=== PATIENT | male | born 1935 | race Caucasian/White ===

== ENCOUNTER 2016-11-04 10:51 | Inpatient (IN) | payer MEDICARE, BC ==
[~2016-11-04 10:51] MED LIST: LIDOCAINE 1% 20 ML VIAL (10MG/ML) FOR IV START INTRADERMA PRN
[2016-11-04] MEDS: LACTATED RINGERS 1,000 ML IV SCH (12:36)
[2016-11-04 13:06] LABS: ALT 36 U/L (21-72); AST 26 U/L (17-59); Alkaline Phosphatase 43 U/L (38-126); Anion Gap 14 mmol/L; Blood Urea Nitrogen 27 mg/dL (9-20); Calcium 9.4 mg/dL (8.4-10.2); Carbon Dioxide 23 mmol/L (22-30); Chloride 105 mmol/L (98-107); Glucose 98 mg/dL (74-99); Non-African American GFR(MDRD) >60 (>60 ml/min/1.73 sqM); Sodium 142 mmol/L (137-145); Total Bilirubin 1.4 mg/dL (0.2-1.3); Total Protein 6.9 g/dL (6.3-8.2)
--- NOTE | 2016-11-04 13:32 | XR ---
EXAMINATION TYPE: XR chest 2V DATE OF EXAM: 11/04/2016 1:22 PM COMPARISON: 08/22/2016 INDICATION: Chest pain TECHNIQUE: Frontal and lateral views of the chest are obtained. FINDINGS: The heart size is normal. The pulmonary vasculature is normal. No suspicious infiltrates are evident. Sternotomy wires are present previous CABG. IMPRESSION: 1. No acute pulmonary process.
[2016-11-04 13:34] LABS: Creatine Kinase MB 0.8 ng/mL (0.0-2.4); Troponin I 0.018 ng/mL (0.000-0.034)
[2016-11-04 14:10] LABS: INR 1.3 (<1.1); Prothrombin Time 12.4 sec (9.0-12.0)
[2016-11-04] MEDS ORDERED: NITROGLYCERIN SL TABS 0.4 MG TAB SUBLINGUAL PRN (15:11)
[2016-11-04] MEDS: SODIUM CHLORIDE 0.9% 1,000 ML IV SCH (16:01)
[2016-11-04] MEDS ORDERED: ALPRAZolam 0.5 MG TAB PO PRN (16:53)
--- NOTE | 2016-11-04 17:16 | CONS ---
DATE OF CONSULTATION: 11/01/2016 REASON FOR CONSULTATION: Hemoptysis to evaluate for bronchoscopy. HISTORY OF PRESENTING ILLNESS: Mr. Ellis Feng is a pleasant 81-year-old male who was seen, evaluated, examined for ongoing problems associated with intermittent streaks to clumps of blood going on for 2 to 3 months. Symptoms started somewhere around July or August. Patient has received multiple courses of antibiotics, has had multiple chest x-rays which have been reviewed as well. Patient has been complaining of poor appetite and weight loss. He has lost close to about 20 pounds as well. Lately, however, he has gained a few pounds back. He does complain of generalized weakness; however, he denies any night sweats, fever or chills. His past medical history is significant for: 1. Dyslipidemia. 2. Degenerative joint disease and osteoarthritis. 3. Hypertension, hypertensive cardiovascular disease. 4. History of coronary artery disease and prior OR. 5. Generalized anxiety disorder. PAST SURGICAL HISTORY: 1. CABG x2 followed by, I believe, redo. 2. Hernia repair. 3. Status post cholecystectomy. 4. History of prostate resection via laser. , FAMILY HISTORY AND SOCIAL HISTORY: He used to smoke 1 pack per day; smoked close to about 40 years. He quit smoking around that time. No history of substance use or alcohol consumption. 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 ALLERGIES: NO KNOWN DRUG ALLERGY. Medications at home include: 1. Vitamin D once daily. 2. Aspirin 81 mg 2 times a day. 3. Metoprolol 25 mg 2 times a day. 4. Liothyronine 5 mcg 2 times a day. 5. Levothyroxine 100 mcg daily. 6. Imdur 60 mg daily. 7. Fenofibrate once daily. 8. Atorvastatin 10 mg daily. Review of the data and radiographic studies reviewed as well. CT scan of the chest on 08/21/16 was negative for pulmonary embolism. Left lower lobe pneumonia is seen. This was performed at [facility]. Chest x-ray on 08/21/16 revealed left lower lobe atelectasis. Chest x-ray on 07/06/16 revealed interstitial prominence, small pleural effusion with a history of prior CABG. October 15 x-ray revealed persistent left lower lobe infiltrate, atelectasis along with left lower lobe volume loss and very small left-sided pleural effusion. On examination, blood pressure is 131/70, respiratory rate 16, pulse of 61. Temperature is 97. Weight is 150 pounds. Height is 69 inches. Saturation 96%. HEENT: Atraumatic, normocephalic. Pharynx is clear without exudate. NECK: Supple without lymphadenopathy, jugular venous distention or carotid bruit. LUNGS: Bilateral good air entry is present; however, decreased air entry and bronchial breath sounds in the left base. HEART: Regular rate, rhythm. S1, S2 audible. ABDOMEN: Soft. No rebound or rigidity. EXTREMITIES: Plus 1 peripheral pulses. NEUROLOGICAL EXAMINATION: Awake and alert. No focal neurological deficit. X-ray finding as dictated above. CT scan finding as dictated above. IMPRESSION: 1. Persistent left lower lobe pneumonia. 2. Hemoptysis. 3. Neoplastic process cannot be excluded. 4. History of coronary artery disease, status post coronary artery bypass graft. 5. History of myocardial infarction. 6. Hypertension, hypertensive cardiovascular disease. 7. Dyslipidemia. PLAN AND RECOMMENDATIONS: I have discussed with the patient as well as his daughter accompanying him at length. Patient is being scheduled for bronchoscopy and possible lung biopsy. Depending upon the finding, further intervention will be addressed. Patient is being set up for pulmonary function testing as well. Further recommendations pending. Plan of care as per clinical response of the patient.
--- NOTE | 2016-11-04 17:27 | P.CRDCN ---
History of Present Illness Consult date: 11/04/16 History of present illness: This is a 81-year-old gentleman with history of ischemic heart disease and previous bypass surgery 2, hypertension and hyperlipidemia and hypothyroidism who was admitted in August of this year to the hospital with the cough and chest pains. At the time he was diagnosed to have pneumonia and was treated with antibiotics. His stress echocardiogram was reported as normal at the time. Patient was brought in today for bronchoscopy by Dr. Quintanilla. Apparently patient has been complaining of intermittent chest pains and has been taking nitroglycerin as needed. Patient claims the pain feels different than the anginal pains. He claims he gets inconsistent relief with nitroglycerin. The pain is not associated with any nausea vomiting or radiation to the jaw or the arm. His EKGs did not reveal any acute changes. These pains are chronic without any acute change in the pattern and stress test was done while patient was having these pains. He is a troponin value so far is within normal limits. Based on those facts, I do not think that patient has any acute anginal syndrome and I do not believe that these pains are definitely cardiac in nature. I would recommend to proceed with bronchoscopy without any further evaluation. He is a Lexiscan stress test in 2013 showed evidence of mild to moderate fixed defect in inferior wall probably secondary previous subendocardial SC without any reversible ischemia. Review of Systems As per the chart Past Medical History Past Medical History: Coronary Artery Disease (CAD), GERD/Reflux, Hyperlipidemia , Hypertension, Myocardial Infarction (SC), Thyroid Disorder Additional Past Medical History / Comment(s): collapsed lung-STATED NO C/T, CONSTIPATION. RECENT EPISODE OF COUGHING UP BLOOD Last Myocardial Infarction Date:: 1991 History of Any Multi-Drug Resistant Organisms: None Reported Past Surgical History: Coronary Bypass/CABG, Hernia Repair Additional Past Surgical History / Comment(s): cataracts tracey, pt stated had 2 separate open heart sx. first one had a double bypass and second sx was single vessel. Past Anesthesia/Blood Transfusion Reactions: No Reported Reaction Past Psychological History: No Psychological Hx Reported Smoking Status: Former smoker Past Alcohol Use History: None Reported Additional Past Alcohol Use History / Comment(s): started smoking at age 15, smoked 1 ppd, quit 1991, denies any etoh use now Past Drug Use History: None Reported - Past Family History Father Additional Family Medical History / Comment(s): multiple back sx. pt unsure of other hx Mother Family Medical History: No Reported History Additional Family Medical History / Comment(s): young, in her 40's Medications and Allergies Home Medications Medication Instructions Recorded Confirmed Type Aspirin EC [Ecotrin Low Dose] 81 mg PO BID 08/15/14 11/04/16 History Atorvastatin [Lipitor] 10 mg PO HS 08/15/14 11/01/16 History Metoprolol Tartrate [Lopressor] 25 mg PO BID 08/15/14 11/01/16 History Cholecalciferol [Vitamin D3] 1,000 unit PO DAILY 09/15/15 11/01/16 History Fenofibrate Nanocrystallized 145 mg PO DAILY 07/07/16 11/01/16 History [Fenofibrate] Levothyroxine Sodium 100 mcg PO DAILY 07/07/16 11/01/16 History Liothyronine Sodium [Cytomel] 10 mcg PO DAILY 08/21/16 11/01/16 History Allergies Allergy/AdvReac Type Severity Reaction Status Date / Time No Known Allergies Allergy Verified 11/01/16 13:57 Physical Exam Vitals: Vital Signs Temp Pulse Resp BP Pulse Ox 11/04/16 16:47 106 H 18 177/78 95 11/04/16 14:00 85 16 151/70 95 11/04/16 11:21 98.1 F 88 16 163/78 98 GENERAL EXAM: Patient is alert and oriented and doesn't appear to be in any acute distress HEENT: Normocephalic. Normal reaction of pupils, equal size, normal range of extraocular motion. No erythema or exudates in the throat. NECK: No masses, no nuchal rigidity. CHEST: No chest wall deformity. LUNGS: Equal air entry with no crackles or wheeze. HEART: S1 and S2 normal with no audible mumurs or gallops. Regular rhythm, femorals equal on both sides.. ABDOMEN: No hepatosplenomegaly, normal bowel sounds, no guarding or rigidity. SKIN: No rashes CENTRAL NERVOUS SYSTEM: No focal deficits. EXTREMITIES: No cyanosis, clubbing or edema. Results 11/04/16 12:30 Cardiac Enzymes 11/04/16 11/04/16 Range/Units 12:30 12:30 AST 26 (17-59) U/L CK-MB (CK-2) 0.8 (0.0-2.4) ng/mL Troponin I 0.018 (0.000-0.034) ng/mL Coagulation 11/04/16 Range/Units 13:45 PT 12.4 H (9.0-12.0) sec Comprehensive Metabolic Panel 11/04/16 Range/Units 12:30 Sodium 142 (137-145) mmol/L Potassium 4.0 (3.5-5.1) mmol/L Chloride 105 (98-107) mmol/L Carbon Dioxide 23 (22-30) mmol/L BUN 27 H (9-20) mg/dL Creatinine 1.10 (0.66-1.25) mg/dL Glucose 98 (74-99) mg/dL Calcium 9.4 (8.4-10.2) mg/dL AST 26 (17-59) U/L ALT 36 (21-72) U/L Alkaline Phosphatase 43 (38-126) U/L Total Protein 6.9 (6.3-8.2) g/dL Albumin 3.6 (3.5-5.0) g/dL Current Medications Generic Name Dose Route Start Last Admin Trade Name Freq PRN Reason Stop Dose Admin Alprazolam 0.5 mg 11/04/16 16:53 Xanax PO TID PRN Agitation or Acute Anxiety Atorvastatin Calcium 10 mg 11/04/16 21:00 Lipitor PO HS LEOBARDO Cholecalciferol 1,000 unit 11/05/16 09:00 Vitamin D3 PO DAILY LEOBARDO Lactated Ringer's 1,000 mls @ 20 mls/hr 11/04/16 06:36 11/04/16 12:36 Lactated Ringers IV 0 mls .Q24H LEOBARDO Administration Ceftriaxone Sodium 1,000 mg/ 50 mls @ 100 mls/hr 11/04/16 13:00 Sodium Chloride IVPB Q24HR LEOBARDO Sodium Chloride 1,000 mls @ 20 mls/hr 11/04/16 15:15 11/04/16 16:01 Saline 0.9% IV 0 mls .Q24H LEOBARDO Administration Isosorbide Mononitrate 60 mg 11/05/16 09:00 Imdur PO QAM LEOBARDO Levothyroxine Sodium 100 mcg 11/05/16 09:00 Synthroid PO DAILY LEOBARDO Lidocaine HCl 0.1 ml 11/04/16 06:36 11/04/16 12:36 .Xylocaine 1% Inj (10mg/Ml) For Iv Start INTRADERMA 0.1 ml PER PROTOCOL PRN Administration IV Start Liothyronine Sodium 10 mcg 11/05/16 09:00 Cytomel PO DAILY LEOBARDO Metoprolol Tartrate 25 mg 11/04/16 21:00 Lopressor PO BID LEOBARDO Nitroglycerin 0.4 mg 11/04/16 15:11 Nitrostat SUBLINGUAL Q5M PRN Chest Pain Non-Formulary Medication 81 mg 11/04/16 21:00 Aspirin Ec PO BID LEOBARDO Non-Formulary Medication 145 mg 11/05/16 09:00 Fenofibrate Nanocrystallized [Fenofibrate] PO DAILY LEOBARDO 11/04/16 12:30 EKG Interpretations (text) Sinus rhythm with evidence of old inferior wall SC Assessment and Plan (1) Atypical chest pain Status: Acute (2) Hx of CABG Status: Acute (3) Hyperlipemia Status: Acute (4) Hypothyroid Status: Acute Plan: Patient chest pain appeared to be typical. Recent is stress echo cardiogram is negative for ischemia. Patient's chest pains have been chronic without any acute change. I would recommend proceeding with bronchoscopy , if necessary, without any further cardiac evaluation.
--- NOTE | 2016-11-04 18:12 | HP ---
DATE OF ADMISSION: 11/04/2016 CHIEF COMPLAINT: Chest pain. HISTORY OF PRESENT ILLNESS: Mr. Ellis Feng is an 81-year-old male who was originally admitted to the hospital with problems associated with hemoptysis and chronic left lung pneumonia versus atelectasis. He has been having intermittent chest pain, has been taking nitroglycerin tablets as well. With those problems, patient is being admitted to the hospital with Cardiology on consultation. EKG was performed which is normal. I have ordered the labs. Procedure of bronchoscopy is being canceled at this point in time. PAST MEDICAL HISTORY: 1. Hypertension, hypertensive cardiovascular disease. 2. Dyslipidemia. 3. Coronary artery disease. 4. History of prior myocardial infarction. 5. History of recurrent pneumonia involving the left side. ALLERGIES: NO KNOWN DRUG ALLERGY. Medications at home include: 1. Nitrostat 0.4 as needed, which he has been taking since yesterday off and on. 2. Aspirin 81 mg daily. 3. Metoprolol 25 mg 2 times a day. 4. Liothyronine 10 mcg daily. 5. Levothyroxine 100 mcg daily. 6. Imdur 60 mg daily. 7. Fenofibrate 145 mg daily. 8. Vitamin D3 once daily. 9. Atorvastatin 10 mg daily. Past surgical history is significant for coronary artery bypass surgery with a redo surgery in the past. FAMILY HISTORY AND SOCIAL HISTORY: He used to smoke; about 40 years, about 1-1/2 packs per day; quit back in the '. REVIEW OF SYSTEMS: Otherwise unremarkable and noncontributory except as dictated above. MANAGER PSYCHOLOGY: Denies seizure-like activity or loss of consciousness or hemiparesis. CARDIORESPIRATORY: Significant for intermittent hemoptysis and left-sided chest pain. GI/: Otherwise unremarkable and noncontributory. MUSCULOSKELETAL/DERMATOLOGICAL: Unremarkable and noncontributory except as dictated above. On examination, most recent vitals include blood pressure 163/70, respiratory rate 16, pulse 88, temperature 98. Saturating at 98%. HEENT: Atraumatic, normocephalic. Pharynx is clear without exudate. NECK: Supple without any lymphadenopathy, jugular venous distention or carotid bruit. LUNGS: Bilateral good air entry is present without significant rales, rhonchi or rub. HEART: Regular rate, rhythm. S1, S2 audible. ABDOMEN: Soft. No rebound or rigidity. EXTREMITIES: Plus one peripheral pulses. NEUROLOGICAL EXAMINATION: Otherwise awake and alert. IMPRESSION: 1. Left-sided chest pain with a significant history of coronary artery disease and angina. Patient is being admitted to hospital with Cardiology on consultation. Cardiac enzymes, including troponin. Troponin has been ordered. 2. Hemoptysis, likely related to left lower lobe atelectasis and pneumonia; however, endobronchial mass or lesion cannot be excluded. Patient was cleared by Cardiology. Will proceed with bronchoscopy. 3. Hemoptysis as above. Patient will be started on broad-spectrum antibiotics as well for hemoptysis and pneumonia. Obtain a chest x-ray. Once, as dictated above, cleared from cardiovascular standpoint, will proceed with bronchoscopy. 4. Myocardial infarction. 5. Coronary artery disease. 6. Dyslipidemia. 7. Hypertension, hypertensive cardiovascular disease. PLAN AND RECOMMENDATIONS: As above.
[2016-11-04] MEDS: ASPIRIN 81 MG CHEW PO SCH (20:23)
[2016-11-04] MEDS: ATORVASTATIN 10 MG TAB PO SCH (20:23)
[2016-11-04] MEDS: METOPROLOL TARTRATE 25 MG TAB PO SCH (20:24)
[2016-11-05] MEDS ORDERED: HEPARIN SODIUM,PORCINE 5,000 UNIT/ML 1 ML VIAL IV PRN (08:32)
[2016-11-05] MEDS ORDERED: HEPARIN SODIUM,PORCINE 5,000 UNIT/ML 1 ML VIAL IV ONE (08:32)
[2016-11-05] MEDS: SODIUM CHLORIDE 0.9% 1,000 ML IV SCH (09:16)
[2016-11-05] MEDS: LEVOTHYROXINE 100 MCG TAB PO SCH (09:16)
[2016-11-05] MEDS: LACTATED RINGERS 1,000 ML IV SCH (09:16)
[2016-11-05] MEDS: LIOTHYRONINE SODIUM 5 MCG TAB PO SCH (09:16)
[2016-11-05] MEDS: HEPARIN SODIUM,PORCINE/D5W PMX 25,000 UNIT in DEXTROSE/WATER 1 500ML.BAG IV SCH (09:17)
--- NOTE | 2016-11-05 09:32 | ECHOF ---
Referral Reason:Chest pain and cardiomyopathy MEASUREMENTS -------- HEIGHT: 175.3 cm WEIGHT: 63.5 kg BP: 134/67 RVIDd: 3.1 cm (< 3.3) IVSd: 1.1 cm (0.6 - 1.1) LVIDd: 4.8 cm (3.9 - 5.3) LVPWd: 1.2 cm (0.6 - 1.1) IVSs: 1.9 cm LVIDs: 3.1 cm LVPWs: 2.1 cm LA Diam: 4.0 cm (2.7 - 3.8) LAESV Index (A-L): 27.37 ml/m Ao Diam: 3.5 cm (2.0 - 3.7) AV Cusp: 2.1 cm (1.5 - 2.6) MV EXCURSION: 11.106 mm (> 18.000) MV EF SLOPE: 37 mm/s (70 - 150) EPSS: 0.3 cm MV E Armand: 0.72 m/s MV DecT: 246 ms MV A Armand: 0.92 m/s MV E/A Ratio: 0.78 RAP: 5.00 mmHg RVSP: 34.97 mmHg FINDINGS -------- Sinus rhythm. This was a technically good study. The left ventricular size is normal. There is borderline concentric left ventricular hypertrophy. Overall left ventricular systolic function is normal with, an EF between 60 - 65 %. The right ventricle is normal in size and function. The left atrium is normal in size. Normal LA size by volume 22+/-6 ml/m2. The right atrium is normal in size. The aortic valve is trileaflet and appears structurally normal. There is trace mitral regurgitation. Trace tricuspid regurgitation present. There is mild pulmonary hypertension. The right ventricular systolic pressure, as measured by Doppler, is 34.97mmHg. Trace/mild (physiologic) pulmonic regurgitation. The aortic root size is normal. IVC Not well visulized. There is no pericardial effusion. CONCLUSIONS -------- 1. Sinus rhythm. 2. Trace tricuspid regurgitation present. 3. There is mild pulmonary hypertension. 4. The right ventricular systolic pressure, as measured by Doppler, is 34.97mmHg. 5. Trace/mild (physiologic) pulmonic regurgitation. 6. The aortic root size is normal. 7. IVC Not well visulized. 8. There is no pericardial effusion. 9. This was a technically good study. 10. There is borderline concentric left ventricular hypertrophy. 11. Overall left ventricular systolic function is normal with, an EF between 60 - 65 %. 12. The right ventricle is normal in size and function. 13. The left atrium is normal in size. 14. The right atrium is normal in size. 15. The aortic valve is trileaflet and appears structurally normal. 16. There is trace mitral regurgitation. SAILOR: Myranda Gotti RDCS
[2016-11-05] MEDS: ASPIRIN 81 MG CHEW PO SCH ×2 (09:34→20:30)
[2016-11-05] MEDS: ISOSORBIDE MONONITRATE ER 60 MG TAB.ER.24H PO SCH (09:34)
[2016-11-05] MEDS: CHOLECALCIFEROL 1,000 UNIT TAB PO SCH (09:34)
[2016-11-05] MEDS: FENOFIBRATE 160 MG TAB PO SCH (09:34)
[2016-11-05] MEDS: METOPROLOL TARTRATE 25 MG TAB PO SCH (09:34)
--- NOTE | 2016-11-05 10:08 | P.PN ---
Subjective Principal diagnosis: Non-ST elevation [place] This 81-year-old gentleman with history of ischemic heart disease with a previous bypass surgery 2. The last bypass surgery was done in 1997 with a single bypass surgery to the circumflex. Patient had a patent FLOYD to the LAD and vein graft to circumflex and patient was brought in yesterday to have bronchoscopy. He was having recurrent chest pains with inconsistent relief with nitroglycerin. EKGs did not reveal any acute changes. Recent a stress echocardiogram in August was negative for ischemia. However his troponin values showed changes consistent with acute non-ST elevation myocardial infarctions. Patient is still coughing and has hemoptysis. I spoke with Dr. Quintanilla regarding possible catheterization and stent placement and need for dual antiplatelet agent. Dr. Quintanilla is going to do a repeat CAT scan to see if there is any findings of necrotizing mass. If the CAT scan is negative, will proceed with cardiac catheterization within next 24-48 hours with intention of possible intervention. Meanwhile we will try maximum medical therapy. Objective - Vital Signs Vital signs: Vital Signs Temp 97.8 F 11/05/16 05:47 Pulse 71 11/05/16 05:47 Resp 17 11/05/16 05:47 BP 150/72 11/05/16 05:47 Pulse Ox 97 11/05/16 05:47 Intake & Output 11/04/16 11/05/16 11/05/16 18:59 06:59 18:59 Intake Total 20 Output Total 200 450 300 Balance -200 -430 -300 Weight 63.6 kg Intake: Intake, IV Titration 20 Amount Sodium Chloride 0.9% 1, 20 000 ml @ 20 mls/hr IV . Q24H [facility] Rx#:[id number] Output: Urine 200 450 300 Other: Voiding Method Urinal Diaper # Voids 1 - Exam GENERAL EXAM: Patient is alert and oriented and doesn't appear to be in any acute distress HEENT: Normocephalic. Normal reaction of pupils, equal size, normal range of extraocular motion. No erythema or exudates in the throat. NECK: No masses, no nuchal rigidity. CHEST: No chest wall deformity. LUNGS: Equal air entry with no crackles or wheeze. HEART: S1 and S2 normal with no audible mumurs or gallops. Regular rhythm, femorals equal on both sides.. ABDOMEN: No hepatosplenomegaly, normal bowel sounds, no guarding or rigidity. SKIN: No rashes CENTRAL NERVOUS SYSTEM: No focal deficits. EXTREMITIES: No cyanosis, clubbing or edema. - Labs CBC & Chem 7: 11/04/16 12:30 Labs: Abnormal Lab Results - Last 24 Hours (Table) 11/04/16 11/04/16 11/04/16 Range/Units 12:30 13:45 19:38 PT 12.4 H (9.0-12.0) sec BUN 27 H (9-20) mg/dL Total Bilirubin 1.4 H (0.2-1.3) mg/dL Troponin I 0.283 H* (0.000-0.034) ng/mL 11/04/16 Range/Units 23:44 PT (9.0-12.0) sec BUN (9-20) mg/dL Total Bilirubin (0.2-1.3) mg/dL Troponin I 0.504 H* (0.000-0.034) ng/mL Assessment and Plan (1) Atypical chest pain Status: Acute (2) Hx of CABG Status: Acute (3) Hyperlipemia Status: Acute (4) Hypothyroid Status: Acute (5) Non-ST elevation [place] (NSTEMI) Status: Acute Plan: Continue with IV heparin. Will increase the dose of the beta betr. We will continue with aspirin and nitrates. Dr. Quintanilla is going to do a repeat CAT scan to reassess the necrotizing mass seen on previous CAT scan. If the symptoms are not controlled and if there is no significant mass on the CAT scan, we will proceed with cardiac catheterization within next 24-48 hours.
[2016-11-05 10:12] LABS: Basophils % (A) 0 %; CH 30.6; CHCM 33.1; Eosinophils # (A) 0.2 k/uL (0-0.7); Eosinophils % (A) 2 %; HDW 2.45; HGB 12.8 gm/dL (13.0-17.5); Luc # (Auto) 0.13; Luc % (Auto) 2; Lymphocytes # (A) 1.3 k/uL (1.0-4.8); Lymphocytes % (A) 16 %; MCH 29.6 pg (25.0-35.0); MCHC 31.9 g/dL (31.0-37.0); MCV 92.8 fL (80.0-100.0); Mean Platelet Volume 9.6; Monocytes # (A) 0.7 k/uL (0-1.0); Monocytes % (A) 9 %; Neutrophils # (A) 5.8 k/uL (1.3-7.7); Neutrophils % (A) 72 %; RBC 4.31 m/uL (4.30-5.90); RDW 13.7 % (11.5-15.5); WBC (Perox) 8.36
[2016-11-05] MEDS ORDERED: METOPROLOL TARTRATE 25 MG TAB PO ONE (10:15)
[2016-11-05 10:24] LABS: INR 1.5 (<1.1); Partial Thromboplastin Time 85.4 sec (22.0-30.0); Prothrombin Time 14.3 sec (9.0-12.0)
--- NOTE | 2016-11-05 12:10 | PN ---
An 81-year-old male seen, evaluated, and examined on the extended stay unit. Patient was admitted to hospital with hemoptysis and was being planned for bronchoscopy but; however, because of chest pain and utilization of nitro, procedure was postponed and consultation with Cardiology was obtained. They evaluated, initially they have cleared the patient but; however, cardiac enzymes show a trend with a rising troponin. Patient currently being evaluated with an echocardiogram. Cardiovascular Service is following and they are in process of evaluating this patient further and likely will undergo cardiac cath and angiogram. Patient hemodynamic status is stable. Last set of vitals include blood pressure is 150/70, respirations 17, pulse 71, temperature 98, saturation 97%. HEENT: Unremarkable. NECK: Supple. LUNGS: Good air entry bilaterally without significant rales, rhonchi, or rub. Decreased air entry at base is present with some crackles at the right base. HEART: Regular rate and rhythm, S1 and S2 audible. ABDOMEN: Soft. No rebound or rigidity. EXTREMITIES: +1 peripheral pulses. NEUROLOGICAL EXAMINATION: Otherwise, awake and alert. Labs reviewed. Medications reviewed. Currently patient on Xanax 3 times a day, aspirin 81 mg daily, Lipitor 10 mg, Rocephin 1 gm daily, also on Lofibra 160 mg daily, heparin drip is being started as per protocol, Imdur 60 mg p.o. daily and KVO. Synthroid is 100 mcg daily. Also on Cytomel 10 mcg, Lopressor and Nitrostat and IV fluid KVO. REVIEW OF SYSTEMS: Otherwise unremarkable and noncontributory on HEENT exam. Labs are reviewed. White cell count revealed PT, INR within normal limit. Chemistry done yesterday revealed troponin initially was 0.018, then 0.283 and 0.504. EKG sinus rhythm. IMPRESSION: 1. [id number] elevated myocardial infarction. 2. Left lower lobe pneumonia versus mass; however, this chest x-ray which was performed in the hospital, shows left lower lobe atelectasis subsegment level. PLAN: As dictated above. Will treat patient for pneumonia and hemoptysis. Continue broad-spectrum antibiotics. For the evaluation for acute [id number] elevated [place] as per Cardiovascular Services. Will follow clinical course closely.
--- NOTE | 2016-11-05 12:17 | CT ---
EXAMINATION TYPE: CT chest wo con DATE OF EXAM: 11/05/2016 10:52 AM COMPARISON: 08/21/2016 HISTORY: 81-year-old male LLL abscess. Necrotizing pneumonia TECHNIQUE: Contiguous axial scanning of the chest without IV contrast. Coronal and sagittal reconstru ctions performed. CT DLP: 473.00 mGycm Automated exposure control for dose reduction was used. FINDINGS: Median sternotomy wires are present with post-CABG changes. Heart is normal size without pericardial effusion. Ascending aorta is borderline ectatic at 3.6 cm with moderate prostatic calcifications and convention al arch vessel branching anatomy. 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 Mild diffuse bronchial wall thickening is noted. There is volume loss within the left lower lobe with persistent consolidation and edema involving the basilar segments with associated cyst/cavity format ion measuring up to 3.7 cm. Overall appearance is unchanged with adjacent groundglass. Focal patchy peribronchial vascular groundglass is a more confluent appearance in the superior segmen t right lower lobe, axial image 20. A 4 mm left upper lobe pulmonary nodule axial image 16 appears unchanged. Small hiatal hernia. Visualized upper abdomen shows cholelithiasis and a large 4.9 cm left upper pole cyst. The upper abdo esther aorta is borderline aneurysmal at 3.0 cm. Some subcentimeter nodularity upper pole right kidney is to small for CT characterization. Bones: Endplate spondylosis throughout the thoracic spine. No osseous destructive process. IMPRESSION: 1. OVERALL APPEARANCE OF THE LEFT LOWER LOBE VOLUME LOSS, CONSOLIDATION, AND CYST/CAVITY FORMATION IS SIMILAR TO 08/21/2016. Pneumonia with areas of cavitary necrosis and pneumatocele formation is suspec chloe. Continued follow-up is recommended. If the finding fails to clear or there are no infectious sig ns/symptoms, consideration should be given to excluding an underlying mass. 2. Patchy peribronchovascular groundglass in the superior segment right lower lobe appears slightly m ore confluent. A second site of infectious infiltrate is possible. Other differential considerations include an interstitial pneumonitis such as [employer] and adenomatous hyperplasia which can be a precursor to lung cancer. Again, this should be followed to ensure clearance. 3. 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 4. Small hiatal hernia, cholelithiasis, and left renal cyst. Subcentimeter lesions in the upper pole right kidney are too small for accurate CT characterization.
[2016-11-05] MEDS: METOPROLOL TARTRATE 50 MG TAB PO SCH (20:31)
[2016-11-05] MEDS: ATORVASTATIN 10 MG TAB PO SCH (21:03)
[2016-11-06] MEDS: ISOSORBIDE MONONITRATE ER 60 MG TAB.ER.24H PO SCH (06:24)
[2016-11-06] MEDS: METOPROLOL TARTRATE 50 MG TAB PO SCH ×2 (06:24→20:44)
[2016-11-06] MEDS: LEVOTHYROXINE 100 MCG TAB PO SCH (06:24)
[2016-11-06] MEDS: ASPIRIN 81 MG CHEW PO SCH ×2 (06:25→20:47)
[2016-11-06] MEDS: LIOTHYRONINE SODIUM 5 MCG TAB PO SCH (06:25)
[2016-11-06] MEDS: CHOLECALCIFEROL 1,000 UNIT TAB PO SCH (06:25)
[2016-11-06] MEDS: FENOFIBRATE 160 MG TAB PO SCH (06:26)
[2016-11-06 06:35] LABS: ALT 31 U/L (21-72); AST 28 U/L (17-59); Alkaline Phosphatase 41 U/L (38-126); Anion Gap 11 mmol/L; Blood Urea Nitrogen 29 mg/dL (9-20); Carbon Dioxide 23 mmol/L (22-30); Chloride 106 mmol/L (98-107); Glucose 100 mg/dL (74-99); Non-African American GFR(MDRD) >60 (>60 ml/min/1.73 sqM); Potassium 4.1 mmol/L (3.5-5.1); Sodium 140 mmol/L (137-145)
[2016-11-06 06:44] LABS: Basophils % (A) 0 %; CH 30.4; CHCM 32.9; Eosinophils # (A) 0.2 k/uL (0-0.7); Eosinophils % (A) 3 %; HDW 2.37; HGB 11.9 gm/dL (13.0-17.5); Luc # (Auto) 0.17; Luc % (Auto) 2; Lymphocytes # (A) 1.7 k/uL (1.0-4.8); Lymphocytes % (A) 22 %; MCH 30.8 pg (25.0-35.0); MCHC 33.2 g/dL (31.0-37.0); Mean Platelet Volume 9.3; Monocytes # (A) 0.8 k/uL (0-1.0); Monocytes % (A) 11 %; Neutrophils # (A) 4.5 k/uL (1.3-7.7); Neutrophils % (A) 61 %; RBC 3.87 m/uL (4.30-5.90); RDW 13.6 % (11.5-15.5); WBC 7.4 k/uL (3.8-10.6); WBC (Perox) 7.87
[2016-11-06] MEDS: HEPARIN SODIUM,PORCINE/D5W PMX 25,000 UNIT in DEXTROSE/WATER 1 500ML.BAG IV SCH (07:38)
[2016-11-06] MEDS: LACTATED RINGERS 1,000 ML IV SCH (07:51)
[2016-11-06] MEDS ORDERED: IV FLUID CONTINUATION 1,000 ML IV ONE (08:51)
[2016-11-06] MEDS ORDERED: MIDAZOLAM 2 MG/2 ML VIAL ONE (09:02)
[2016-11-06] MEDS ORDERED: diphenhydrAMINE 50 MG/ML 1 ML VIAL ONE (09:03)
[2016-11-06] MEDS ORDERED: fentaNYL (PF) 50 MCG/ML 2 ML AMP ONE (09:03)
[2016-11-06] MEDS ORDERED: LIDOCAINE 2% INJ 20 MG/ML (20 ML MDV) ONE (09:03)
[2016-11-06] MEDS ORDERED: fentaNYL (PF) 50 MCG/ML 2 ML AMP IV ONE (09:11)
[2016-11-06] MEDS ORDERED: diphenhydrAMINE 50 MG/ML 1 ML VIAL IVP ONE (09:11)
[2016-11-06] MEDS ORDERED: LIDOCAINE 2% INJ 20 MG/ML SQ ONE (09:12)
[2016-11-06] MEDS ORDERED: IOHEXOL 350 MG/ML 100 ML BOTTLE INJ ONE (09:57)
[2016-11-06] MEDS ORDERED: RX INFO: IV CONTRAST WAS GIVEN 1 EACH MISC MISCELLANE PRN (10:06)
[2016-11-06] MEDS: SODIUM CHLORIDE 0.9% 1,000 ML IV SCH ×2 (11:10→20:44)
--- NOTE | 2016-11-06 12:11 | PN ---
Ellis Hernandez was seen, evaluated and examined. This patient has acute non- ST segment elevated myocardial infarction with anginal pain. The patient care plan discussed with the primary service and care plan discussed with the cardiovascular services as well. They are planning for cardiac cath, angiogram and possibly a stent placement if need arises. However, patient has been having pneumonia, which is necrotizing on the left lower lobe as well as patchy infiltrate on the right mid lung field is seen. CT scan of the chest has been repeated, which I reviewed and compared to prior x-ray, prior CT scan, no significant change has been seen though. Patient continued to manifest necrotizing pneumonia or cavitary ( ). Last set of vitals include blood pressure is 110/51, respiratory rate 12, heart rate 60, temperature 97, saturation 93% on room air. HEENT: Unremarkable. NECK: Supple. LUNGS: Good air entry bilaterally. A few crackles at bases. HEART: Regular rate and rhythm. ABDOMEN: Soft. NEUROLOGICAL EXAMINATION: Otherwise, awake and alert. Labs reviewed. Medications reviewed as well. IMPRESSION: 1. Bilateral pneumonia, acute hypoxic respiratory failure, hemoptysis. 2. Non-ST segment elevated myocardial infarction. 3. Diffuse coronary artery disease. PLAN AND RECOMMENDATIONS: Continue antibiotics. Continue supportive care. Cardiac cath, angiogram and stent placement as per cardiovascular services. Will follow.
[2016-11-06 13:44] VITALS: BMI 16.7
[2016-11-06] MEDS: ATORVASTATIN 10 MG TAB PO SCH (20:45)
[2016-11-07] MEDS: LACTATED RINGERS 1,000 ML IV SCH (04:48)
[2016-11-07] MEDS: LEVOTHYROXINE 100 MCG TAB PO SCH (06:23)
[2016-11-07] MEDS: LIOTHYRONINE SODIUM 5 MCG TAB PO SCH (06:23)
[2016-11-07 06:45] LABS: Basophils % (A) 1 %; CH 30.3; CHCM 32.5; Eosinophils # (A) 0.3 k/uL (0-0.7); Eosinophils % (A) 6 %; HCT 35.6 % (39.0-53.0); HDW 2.41; HGB 11.6 gm/dL (13.0-17.5); Luc # (Auto) 0.11; Luc % (Auto) 2; Lymphocytes # (A) 1.3 k/uL (1.0-4.8); Lymphocytes % (A) 25 %; MCH 30.6 pg (25.0-35.0); MCHC 32.7 g/dL (31.0-37.0); MCV 93.7 fL (80.0-100.0); Mean Platelet Volume 9.2; Monocytes # (A) 0.5 k/uL (0-1.0); Monocytes % (A) 10 %; Neutrophils # (A) 2.9 k/uL (1.3-7.7); Neutrophils % (A) 57 %; RDW 13.8 % (11.5-15.5); WBC 5.1 k/uL (3.8-10.6); WBC (Perox) 5.68
[2016-11-07 07:29] LABS: Anion Gap 9 mmol/L; Blood Urea Nitrogen 27 mg/dL (9-20); Calcium 8.8 mg/dL (8.4-10.2); Carbon Dioxide 21 mmol/L (22-30); Chloride 111 mmol/L (98-107); Glucose 102 mg/dL (74-99); Non-African American GFR(MDRD) >60 (>60 ml/min/1.73 sqM); Potassium 4.1 mmol/L (3.5-5.1); Sodium 141 mmol/L (137-145)
[2016-11-07] MEDS: FENOFIBRATE 160 MG TAB PO SCH (08:30)
[2016-11-07] MEDS: CHOLECALCIFEROL 1,000 UNIT TAB PO SCH (08:30)
[2016-11-07] MEDS: ISOSORBIDE MONONITRATE ER 60 MG TAB.ER.24H PO SCH (08:30)
[2016-11-07] MEDS: METOPROLOL TARTRATE 50 MG TAB PO SCH ×2 (08:30→21:58)
[2016-11-07] MEDS: ASPIRIN 81 MG CHEW PO SCH ×2 (08:30→21:58)
--- NOTE | 2016-11-07 09:50 | PN ---
DATE OF SERVICE: 11/07/2016 Mr. Ellis Feng is an 81-year-old male who was seen, evaluated and examined in followup. Patient is status post cardiac cath and angiogram. Patient's graft was patent. No obvious stenosis seen requiring stent placement. Clinically, patient is doing well. Denies any chest pain, has intermittent cough with streaks of blood production. Hemodynamic status is stable. Last set of vitals include blood pressure is 132/77, respiratory rate 18, pulse 92, temperature 98, saturation 92%. HEENT: Unremarkable. NECK: Supple. LUNGS: Good air entry bilaterally. HEART: Regular rate and rhythm. Abdomen is soft. NEUROLOGICAL EXAMINATION: Otherwise, awake and alert. Medications reviewed. Laboratory data reviewed as well. IMPRESSION: 1. Left lower lobe pneumonia, cavitary versus a mass-like processes. 2. Right mid lung field patchy infiltrate, which have been unchanged since August 2016. Patient is empirically on antibiotics, tolerating fairly well. 3. History of severe degree of coronary artery disease, dyslipidemia, hypertension, hypertensive cardiovascular disease. Stable CABG x2. Plan is to continue supportive care. Will check with Cardiovascular Services if a bronchoscopy can be performed to look into the airways. Further recommendations pending. Plan of care as per clinical response of the patient.
--- NOTE | 2016-11-07 11:04 | P.PN ---
Subjective Principal diagnosis: Chest pain This 81-year-old gentleman with history of ischemic heart disease with a previous bypass surgery 2. The last bypass surgery was done in 1997 with a single bypass surgery to the circumflex. Patient had a patent FLOYD to the LAD and vein graft to circumflex and patient was brought in yesterday to have bronchoscopy. He was having recurrent chest pains with inconsistent relief with nitroglycerin. EKGs did not reveal any acute changes. Recent a stress echocardiogram in August was negative for ischemia. However his troponin values showed changes consistent with acute non-ST elevation myocardial infarction. Patient underwent a cardiac catheterization yesterday by Dr. Fajardo medical therapy advised. He is scheduled to undergo his bronchoscopy tomorrow with Dr. Awan which is what he initially came in for. At the time of my examination this morning, he is sitting up in the chair at the bedside denies any chest pain, breathing is stable. Objective - Vital Signs Vital signs: Vital Signs Temp 96.7 F L 11/07/16 08:24 Pulse 92 11/07/16 08:24 Resp 18 11/07/16 08:25 BP 132/77 11/07/16 08:24 Pulse Ox 92 L 11/07/16 08:24 Intake & Output 11/06/16 11/07/16 11/07/16 18:59 06:59 18:59 Intake Total 436 1100 240 Output Total 650 550 Balance -214 550 240 Weight 51.5 kg 66.1 kg Intake: IV 200 Intake, IV Titration 900 Amount Sodium Chloride 0.9% 1, 900 000 ml @ 75 mls/hr IV . [id number] [facility] Rx#:[id number] Oral 236 200 240 Output: Urine 650 550 Other: Voiding Method Urinal Urinal Urinal Diaper Diaper Diaper # Voids 1 - Exam PHYSICAL EXAMINATION: HEENT: Head is atraumatic, normocephalic. Pupils equal, round. Neck is supple. There is no elevated jugular venous pressure. HEART EXAMINATION: Heart S1, S2 normal. No murmur or gallop heard. CHEST EXAMINATION: Lungs are clear to auscultation and precussion. No chest wall tenderness is noted on palpation or with deep breathing. ABDOMEN: Soft, nontender. Bowel sounds are heard. No organomegaly noted. Right groin soft, no evidence of any hematoma. EXTREMITIES: 2+ peripheral pulses with no evidence of peripheral edema and no calf tenderness noted. NEUROLOGIC patient is awake, alert and oriented -3. . - Labs CBC & Chem 7: 11/07/16 06:18 11/07/16 06:18 Labs: Abnormal Lab Results - Last 24 Hours (Table) 11/07/16 11/07/16 Range/Units 06:18 06:18 RBC 3.80 L (4.30-5.90) m/uL Hgb 11.6 L (13.0-17.5) gm/dL Hct 35.6 L (39.0-53.0) % Plt Count 145 L (150-450) k/uL Chloride 111 H (98-107) mmol/L Carbon Dioxide 21 L (22-30) mmol/L BUN 27 H (9-20) mg/dL Glucose 102 H (74-99) mg/dL Assessment and Plan (1) Atypical chest pain Status: Acute (2) GERD (gastroesophageal reflux disease) Status: Acute (3) HTN (hypertension) Status: Acute (4) Hx of CABG Status: Acute (5) Hyperlipemia Status: Acute (6) Hypothyroid Status: Acute Plan: From cardiology's perspective, patient may be able to be this discharged home tomorrow after his bronchoscopy. We will make him a follow-up appointment with Dr. Fajardo in the office in one week. DNP note has been reviewed, I agree with a documented findings and plan of care. Patient was seen and examined.
[2016-11-07] MEDS: SODIUM CHLORIDE 0.9% 1,000 ML IV SCH (15:47)
[2016-11-07] MEDS: ATORVASTATIN 10 MG TAB PO SCH (21:58)
[2016-11-08 01:57] VITALS: RESP 18
[2016-11-08 01:59] VITALS: BP 145/76; PULSE 69; TEMP 97.3
--- NOTE | 2016-11-14 07:42 | P.PCN ---
Date of Procedure: 11/14/16 Preoperative Diagnosis: Non-ST elevation IN Postoperative Diagnosis: Diffuse coronary artery disease Description of Procedure: HISTORY: This is a 81-year-old gentleman with history of coronary bypass surgery 2, was admitted to the hospital with the prolonged and recurrent chest pains. His cardiac enzymes studies were suggestive of non-ST elevation IN. Patient is advised to have cardiac catheterization for definitive diagnosis. CONSENT:I have discussed the risks, benefits and alternative therapies for the above-mentioned procedure and for both sedation/analgesia as well as necessary blood product administration, if indicated, as they pertain to this patient. The patient has indicated understanding and acceptance of the risks and procedures discussed. PROCEDURE: Patient was brought to the lab in a fasting state. Patient was given some IV sedation. The right groin is infiltrated with lidocaine and right femoral artery was entered using Seldinger technique. A 6-Greek catheter was left in place and selective coronary arteriography including FLOYD graft to the LAD and vein graft to the RCA was performed. Thoracic aortogram was performed and left ventriculography was not done Patient tolerated the procedure well. Femoral angiogram was performed and Angio-Seal was applied for hemostasis. No immediate complications were noted and patient was transferred to [facility] in a stable condition HEMODYNAMICS: The aortic pressure is 130/70. Left ankle end-diastolic pressure is about 15. There was no gradient across the aortic valve SELECTIVE CORONARY ARTERIOGRAPHY: LEFT MAIN: The left main coronary artery is short and patent with mild diffuse disease THE LEFT ANTERIOR DESCENDING CORONARY ARTERY: Totally occluded. There is about 80% stenosis of the diagonal branch THE LEFT CIRCUMFLEX AND IS CORONARY ARTERY: Totally occluded proximally THE RIGHT CORONARY ARTERY: Totally occluded proximally THE FLOYD GRAFT TO THE LAD: This is patent throughout its length and also at distal anastomosis. The LAD beyond the insertion appears to be moderate in caliber and patent. THE VEIN GRAFT TO THE RCA: This is patent at the proximal and distal anastomosis with a diffuse ectatic changes throughout the body. Distal RCA consisting of PLV and PDA has mild diffuse disease without any significant focal lesion. THE GRAFT TO THE CIRCUMFLEX: This could not be selectively studied and the presumed to be totally occluded. The thoracic ANGIOGRAM: This is did not reveal any evidence of patency of the vein graft to circumflex. LEFT VENTRICULOGRAPHY: Not performed FINAL IMPRESSION: Total occlusion of all sho[place] vessels with a 80% stenosis of the diagonal branch. The FLOYD to the LAD is patent. The vein graft to the RCA is patent. The vein graft to the circumflex could not be selectively studied and presumed to be occluded PLAN: Maximum medical therapy and this factor modification PROGNOSIS: Guarded
== END 2016-11-08 02:14 | disposition left against medical advice (07) | DRG 280 ==
LOC: ORWHC2ENDO 10:51 → 2CATHESU 17:03 → OBSVTOIN 11-05 11:15 → 6SEL 11-05 11:38
PROVIDERS: ADMIT Internal Medicine Sleep Medicine; ATTEND Internal Medicine Sleep Medicine
PROC: B2131ZZ Fluoroscopy of Multiple Coronary Artery Bypass Grafts using Low Osmolar Contrast (ICD-10-PCS; principal; 2016-11-07)
PROC: 4A023N7 Measurement of Cardiac Sampling and Pressure, Left Heart, Percutaneous Approach (ICD-10-PCS; principal; 2016-11-07)
PROC: B2111ZZ Fluoroscopy of Multiple Coronary Arteries using Low Osmolar Contrast (ICD-10-PCS; principal; 2016-11-07)
DX: I21.4 Non-ST elevation (NSTEMI) myocardial infarction (principal); J18.9 Pneumonia, unspecified organism; J96.01 Acute respiratory failure with hypoxia; J85.0 Gangrene and necrosis of lung; J90 Pleural effusion, not elsewhere classified; I11.9 Hypertensive heart disease without heart failure; I25.719 Atherosclerosis of autologous vein coronary artery bypass graft(s) with unspecified angina pectoris; J98.11 Atelectasis; E03.9 Hypothyroidism, unspecified; E78.5 Hyperlipidemia, unspecified; F41.1 Generalized anxiety disorder; I25.119 Atherosclerotic heart disease of native coronary artery with unspecified angina pectoris; K21.9 Gastro-esophageal reflux disease without esophagitis; M19.90 Unspecified osteoarthritis, unspecified site; Z79.82 Long term (current) use of aspirin; I25.2 Old myocardial infarction; Z87.891 Personal history of nicotine dependence; Z79.899 Other long term (current) drug therapy
CPT/HCPCS: 71020; 71250; 80048; 80053; 82553; 84484; 85025; 85610; 85730; 87070; 87205; 93005; 93306; 93459

== ENCOUNTER → 2016-12-27 | Outpatient (CLI) | payer MEDICARE, BC ==
--- NOTE | 2016-12-27 09:41 | CT ---
EXAMINATION TYPE: CT chest wo con DATE OF EXAM: 12/27/2016 8:52 AM COMPARISON: Prior CT chest 2013 2016 HISTORY: Nodule CT DLP: 225.2 mGycm Automated exposure control for dose reduction was used. FINDINGS: Volume loss in left hemithorax, abnormal increased attenuation at the left lung base with possible pn eumatocele formation, nodularity again noted and not significantly changed. Abnormal parenchymal dens ity in the right lower lobe is also similar in appearance, there may be some associated mucus pluggin g. No endobronchial lesion. There are pleural calcifications, pleural thickening in the left hemithor ax similar to previous exam. Gallstones again noted, left cortical renal cyst is again seen. Lack of intravenous contrast could co mpromise sensitivity. Colonic interposition noted anterior to the liver. There are dense coronary artery calcifications, aortic calcifications, the heart is enlarged. Possibl e hiatal hernia present at the distal esophagus. Aortic root is thought to be borderline dilated at a pproximately 4 cm. There is no mediastinal, axillary, or hilar adenopathy. Patient is post median sternotomy. Descending aorta measures approximately 3.2 cm. The spleen is borderline enlarged. Liver is at the upper limit of normal for size. IMPRESSION: AORTIC ANEURYSM IS BORDERLINE. CORONARY ARTERY DISEASE. VOLUME LOSS, PLEURAL PARENCHYMAL CHANGES, NOD ULARITY DO NOT SHOW SIGNIFICANT INTERVAL CHANGE. Splenomegaly
== END | disposition home or self-care (01) ==
LOC: RADCTMAIN 08:24
PROVIDERS: ATTEND Internal Medicine Sleep Medicine
DX: R91.1 Solitary pulmonary nodule (principal); I71.9 Aortic aneurysm of unspecified site, without rupture; I25.10 Atherosclerotic heart disease of native coronary artery without angina pectoris
CPT/HCPCS: 71250

== ENCOUNTER 2016-12-31 08:24 | Day surgery (SDC) | payer MEDICARE, BC ==
[2016-12-26 11:39] VITALS: BMI 21.2
[~2016-12-31 08:24] MED LIST changes: +LACTATED RINGERS 1,000 ML IV SCH; +Pre Op ABX Message 1 EACH MISC MISCELLANE ONE
[2016-12-31 09:07] VITALS: TEMP 97.5
[2016-12-31 09:40] LABS: INR 1.3 (<1.1); Prothrombin Time 12.7 sec (9.0-12.0)
[2016-12-31] MEDS ORDERED: PROPOFOL 10 MG/ML 20 ML VIAL IV ONE (09:53)
[2016-12-31] MEDS ORDERED: KETAMINE 10 MG/ML 20 ML VIAL ONE (09:53)
[2016-12-31] MEDS ORDERED: LIDOCAINE 1% INJ 10MG/ML (20 ML MDV) ONE (09:53)
[2016-12-31] MEDS ORDERED: MIDAZOLAM 2 MG/2 ML VIAL ONE (09:53)
[2016-12-31] MEDS ORDERED: LIDOCAINE 2% INJ 20 MG/ML INTRATRACH ONE (10:12)
--- NOTE | 2016-12-31 10:48 | XR ---
EXAMINATION TYPE: XR chest 1V DATE OF EXAM: 12/31/2016 10:39 AM COMPARISON: 11/04/2016 HISTORY: 81-year-old male rule out pneumonia, left lower lobe biopsy TECHNIQUE: Single frontal view of the chest is obtained. FINDINGS: Median sternotomy wires are present with post CABG clips. There is leftward patient rotation. Patchy left basilar and retrocardiac opacity. 4 cm air cyst at the left hilum, possible pneumatocele. IMPRESSION: Chronic volume loss and consolidation left lower lobe and possible postinfectious left perihilar pneu matocele. Underlying infection would be difficult to exclude. Focal infiltrate in the right upper to midlung was present back on 11/04/2016 as well. No significant interval change though these findings s hould continue to be followed.
[2016-12-31 10:52] VITALS: BP 155/77; PULSE 94; RESP 18
--- NOTE | 2017-01-01 06:28 | PCN ---
DATE OF PROCEDURE: PROCEDURE DONE: 1. Bronchoscopy. 2. Bronchoalveolar lavage. 3. Bronchial washing. 4. Bronchial brush. 5. Bronchial biopsy. Indications include left lower lobe mass, abscess and pneumonia, coronary artery disease. For Anesthesia: Please see the anesthesia detail. OPERATIVE DETAIL: Patient prepared in the usual fashion. Anesthesia has been given by the anesthesia service. ( ) bronchoscope was passed through the right naris. Vocal cords inspected. They were normal in structure and function. Tip of the scope was passed from the vocal cords into the airways. The trachea was normal in structure and appearance. Tip of the scope was passed in the right side. Right upper lobe, middle lobe and lower lobe along with subsegments inspected. Followed by on the left side, the left upper lobe, lingular lobe were noted to be slightly edematous, however, on the left lower lobe bronchus mucosa irregularity, right ( ) edema was seen. BAL was performed over there followed by multiple biopsy of the bronchial mucosa of the left lower lobe bronchus as well as brushing. Patient tolerated the procedure well. No complication noted.
== END 2016-12-31 12:00 | disposition home or self-care (01) ==
LOC: ORWHC2ENDO 08:24
PROVIDERS: ATTEND Internal Medicine Sleep Medicine
DX: J18.1 Lobar pneumonia, unspecified organism (principal); R91.8 Other nonspecific abnormal finding of lung field; I25.10 Atherosclerotic heart disease of native coronary artery without angina pectoris; I10 Essential (primary) hypertension; Z87.891 Personal history of nicotine dependence; Z95.1 Presence of aortocoronary bypass graft; E78.5 Hyperlipidemia, unspecified; J44.9 Chronic obstructive pulmonary disease, unspecified; E07.9 Disorder of thyroid, unspecified; I25.2 Old myocardial infarction; Z79.82 Long term (current) use of aspirin; Z79.899 Other long term (current) drug therapy
CPT/HCPCS: 87798; 87541; 88104; 88108; 88305; 85610; 87252; 87070; 87205; 87116; 87102; 87206; 71010; 31625; 31623; 31624; J2001 ×2; J2250; J2704; 87496; 87498; 87502; 87529

== ENCOUNTER → 2017-02-01 | Outpatient (CLI) | payer MEDICARE, BC ==
--- NOTE | 2017-02-02 13:05 | PE ---
EXAMINATION TYPE: PET CT fusion skull to thigh DATE OF EXAM: 02/01/2017 7:04 PM COMPARISON: Chest CT 12/27/2016 Prior PET/CT: None HISTORY: Lung cancer TECHNIQUE: Following the intravenous administration of 13.3 by mCi of F-18 FDG, whole body images ar e performed from the skull base to the midthigh. Images are reviewed on the computer in the coronal, axial, and sagittal planes. Reconstructed rotating images are created on independent workstation an d reviewed on the computer. A localization and attenuation correction CT is performed in conjunctio n with the PET scan. DLP: 276.2 mGycm SCAN: Initial Blood glucose: 85 mg/dL Average Mediastinum SUV: 1.35 Average Liver SUV: 1.7 FINDINGS: NECK: No abnormal uptake THORAX: There is increased radiotracer accumulation within the nodular density of the posterior left upper lobe measuring 2.53 SUV value. A metastatic lesion could be considered. There is marked increas ed uptake within the mass within the posterior left lung base with an SUV value of 18.6 compatible wi th neoplasm. There is a focal area of increased radiotracer accumulation within the anterior vertebra l body of T9 compatible with a metastatic lesion. ABDOMEN: No abnormal uptake PELVIS: No abnormal uptake OSSEOUS STRUCTURES: Abnormal uptake is within scattered osseous structures. This would include:Spinou s process C1, third posterior left rib, anterior T9 vertebral body, posterior medial right iliac wing , lower right sacrum have abnormal uptake suspicious for osseous metastasis. LOCALIZATION CT: Prostate is prominent. Vascular calcifications within the aorta. Ascending thoracic aorta at the level of the main pulmonary artery measures 4.1 cm. The main pulmonary artery bifurcatio n measures 2.9 cm. Coronary artery calcification is present. Loops of bowel are anterior to the right lobe of the liver. Adrenal glands appear within normal limits. Large cyst on the superior pole left kidney. Sigmoid diverticulosis is present. The prostate is very prominent contains calcification. COMPARISON: Localization CT findings compatible with prior CT. IMPRESSION: 1. Left lung base mass compatible with neoplasm. 2. Additional nodularity with intermediate signal can be compatible with neoplasm or inflammatory gigi nge. 3. Multiple osseous areas compatible with neoplastic process discussed above. 4. Prominent prostate.
== END | disposition home or self-care (01) ==
LOC: RADPETMAIN 13:47
PROVIDERS: ATTEND Internal Medicine Sleep Medicine
DX: C34.32 Malignant neoplasm of lower lobe, left bronchus or lung (principal); R91.8 Other nonspecific abnormal finding of lung field
CPT/HCPCS: 78815; A9552